=== PATIENT | male | born 1980 | race Caucasian/White ===

== ENCOUNTER → 2016-10-20 | Outpatient (CLI) | payer OTHER ==
--- NOTE | 2016-10-20 12:03 | KCIC ---
PROCEDURE MRI lumbar spine without contrast. HISTORY Low back pain with tenderness at L3-L4. Symptoms for 5 years. Radiculopathy. TECHNIQUE Sagittal T1, sagittal T2, sagittal STIR, axial T1, and axial T2 sequences are provided. COMPARISON February 05, 2015. FINDINGS There is no change in alignment. There is no marrow edema. There is no worrisome marrow lesion. There is disc desiccation at L5-S1. Disc height is relatively maintained. The conus medullaris is normal in signal intensity and in position. The numbering system assumes 5 lumbar type vertebral bodies. Findings by individual level are as follows: L1-L2: There is no canal or foraminal compromise. L2-L3: There is a minimal disc bulge without canal or foraminal compromise. L3-L4: There is a minimal disc bulge and minimal facet hypertrophy without canal or foraminal compromise. L4-L5: There is a mild disc bulge and minimal facet hypertrophy without canal or foraminal compromise. L5-S1: In addition to a minimal disc bulge there is a shallow central protrusion with annular fissure, similar to prior. There is no canal stenosis or foraminal compromise IMPRESSION Minimal degenerative disc disease and facet hypertrophy in the lumbar spine. This does not result in any high-grade canal or foraminal compromise. Findings are similar to 2015. Electronically signed by: Mauro Newsome MD (Oct 20, 2016 12:01:59)
== END | disposition home or self-care (01) ==
LOC: KCIC MRI 09:40
PROVIDERS: ATTEND Family Medicine
DX: M51.36 Other intervertebral disc degeneration, lumbar region (principal)
CPT/HCPCS: 72148

== ENCOUNTER → 2019-03-24 | Outpatient (CLI) | payer OTHER ==
--- NOTE | 2019-03-24 14:01 | KCIC ---
MR of the left knee HISTORY: Left knee pain medially for 1.5 year. TECHNIQUE: Routine multiplanar sequences are obtained. FINDINGS: No evidence of medial or lateral meniscal tear. Anterior and posterior cruciate ligaments are intact. Medial collateral ligament intact. Iliotibial band unremarkable. Fibular collateral ligament, biceps femoris tendon and popliteus tendon are intact. Extensor mechanism is intact. No significant joint effusion. Mild chondromalacia of the patellofemoral joint. Subchondral marrow edema and cystic change at the medial femoral trochlea, mild. No acute articular cartilage defect. No acute fracture. No aggressive bone destruction. No significant Preston's cyst. IMPRESSION: 1. Mild chondromalacia of the patellofemoral joint. 2. No evidence of meniscal tear or other internal derangement. Electronically signed by: Casey Anderson MD (03/24/2019 1:58 PM) [id number]
== END | disposition home or self-care (01) ==
LOC: KCIC MRI 12:47
PROVIDERS: ATTEND Family Medicine
DX: M94.262 Chondromalacia, left knee (principal)
CPT/HCPCS: 73721

== ENCOUNTER → 2019-08-22 | Outpatient (CLI) | payer OTHER ==
--- NOTE | 2019-08-22 15:42 | KCIC ---
LUMBAR SPINE WO CONTRAST History: Lumbar radiculopathy. Right hip pain. Technique: Multiplanar, multi sequential MR imaging was performed of the lumbar spine. Comparison: October 20, 2016 Findings: Normal vertebral body height and alignment. No fracture. Conus terminates at the normal location. No evidence of nerve root clumping. L1-L2: No canal or neuroforaminal narrowing. L2-L3: No canal or neuroforaminal narrowing. L3-L4: No canal or neuroforaminal narrowing. L4-L5: No canal or neuroforaminal narrowing. Mild facet arthropathy. L5-S1: Small central disc protrusion with annular fissure. No canal or neuroforaminal narrowing. Mild facet arthropathy. When compared the prior examination the findings are similar. Impression: 1. Minimal lower lumbar spondylosis. No significant canal or neuroforaminal narrowing. Electronically signed by: Carrillo Drew DO (08/22/2019 3:39 PM) [id number]
== END | disposition home or self-care (01) ==
LOC: KCIC MRI 11:21
PROVIDERS: ATTEND Anesthesiology
DX: M47.26 Other spondylosis with radiculopathy, lumbar region (principal); M51.16 Intervertebral disc disorders with radiculopathy, lumbar region; M53.3 Sacrococcygeal disorders, not elsewhere classified; M12.88 Other specific arthropathies, not elsewhere classified, other specified site
CPT/HCPCS: 72148